=== PATIENT | female | born 1995 | race Caucasian/White ===

== ENCOUNTER 2024-08-12 06:20 | Inpatient (IN) ==
[2024-08-12] MEDS ORDERED: CALCIUM CARBONATE 500 MG CHEWABLE TAB PO PRN (06:44)
[2024-08-12] MEDS ORDERED: ACETAMINOPHEN 325 MG TAB PO PRN (06:44)
[2024-08-12] MEDS ORDERED: ALBUTEROL HFA 8 GM INHALER INH PRN (06:47)
--- NOTE | 2024-08-12 07:15 | History & Physical Report ---
Date of Service August 12, 2024 Assessment & Plan (1) Gestational diabetes: (2) Supervision of normal first : Plan Manuel is a 29 y/o female currently at 39 5/7 WGA with an BROOKE 08/14/24 as determined by LMP who is here for . Her was complicated by COVID- 19 in Dec 2023 and taking daily aspirin daily, diet-controlled GDM. - Consult anesthesiology for epidural per pt request - Pitocin and amniotomy as needed for labor augmentation - NPO until delivery Admission and Anticipated Discharge Date Admission Date: August 12, 2024 History of Present Illness Chief Complaint: Labor Primary Care Provider: NO PCP Manuel is a 29 y/o female currently at 39 5/7 WGA with an BROOKE 08/14/24 as determined by LMP who is here for secondary to regualr contractions at home . Her was complicated by COVID-19 in Dec 2023 and taking daily aspirin daily, diet-controlled GDM. regular contractions; regular movement; no fluid loss; no bloody show Had regular appointments with OB. Blood Type O Positive 01/11/24 Antibody Screen NEGATIVE 01/11/24 Hgb 11.0 g/dl (12.0-16.0) L 05/24/24 Hct 33.5 % (37.0-47.0) L 05/24/24 MCV 90.1 fL (80.0-100.0) 01/11/24 Plt Count 280 K/uL (130-400) 01/11/24 Rubella IgG Antibody Equivocal (Immune) L 01/11/24 Treponema pallidum Ab Negative (Negative) 05/24/24 Hep Bs Antigen Negative (Negative) 01/11/24 Hepatitis C Antibody Negative (Negative) 01/11/24 HIV 1&2 Ab/P24 Ag 4thGn Negative (Negative) 01/11/24 Glucose 1 Hr 50 gm 138 mg/dl (70-130) H 05/24/24 OB Optional Labs: Chlamydia trachomatis RNA Not Detected (NotDetected) 01/11/24 Neisseria gonorrhoeae RNA Not Detected (NotDetected) 01/11/24 H.0(today) Hct: 35.3 (today) WBC: 10.26 (today) Plt: 210 (today) GBS: neg Allergies Allergy/AdvReac Type Severity Reaction Status Date / Time No Known Drug Allergies Allergy Verified 08/09/24 14:29 Home Medications Medication Instructions Recorded Confirmed Type albuterol sulfate 90 mcg/actuation 1 inh inhalation QID PRN shortness 11/23/21 08/12/24 Rx aerosol inhaler of breath or wheezing #6.7 grams PNV no.[id number] 1 tab PO 1XD 01/10/24 08/09/24 History [ Gummies] aspirin [Baby Aspirin] 81 mg PO DAILY 02/01/24 08/12/24 History breast pump #1 ea 07/05/24 08/09/24 Rx Patient History Medical History History of chicken pox Environmental allergies Asthma Surgical History S/P wisdom tooth extraction Family History Father Lymphoma Cancer of kidney Family/Other Breast cancer Denies family history of Ovarian cancer Prostate cancer Lung cancer Colorectal cancer Social History Smoking Status: Never smoker Second Hand Exposure: No; Do You Dip or Chew Tobacco: No; Tobacco Cessation Education Requested by Patient: No Hx Alcohol Use: No Hx Substance Use: No Preferred Language: Turkmen Communication Ability: Effective Visual Impairment: No Limitations Hearing Ability: Normal Supervisor Electronics Inspection Required: No Beliefs That Will Affect Care: None marital status: marital status details: Earnest Beck (27) [phone] Current Living Situation: Spouse Current Living Situation Comment: Pt lives with her - Earnest current occupational status: employed current occupation: [employer]pro[employer] Other Information That Helps Us Care for You: No Feels Safe at Home: Yes Safety Concerns: Feels Safe At This Time Childhood Exposure to Second-Hand Smoke: No caffeine: Yes Dental Care, Regularly: Yes Physical Activity Frequency: 3-4 Times per Week Seatbelt Use: always Sunscreen Use: Yes Assistive Devices: None Review of Systems Denies fever, chills, sweats Denies shortness of breath, difficulty breathing, chest pain, palpitations, chest pressure. Denies breast pain. Denies dysuria. Denies headache or changes in vision. Physical Exam Physical Exam: General: Alert, oriented. No acute distress. Cardiac: Regular rate and rhythm, no murmurs/rubs/gallops. Respiratory: Clear to auscultation bilaterally a/p, no wheezes/rales/rhonchi. No increased work of breathing. Symmetrical chest rise. No respiratory distress. Abdomen: Gravid Pelvic: Dilation 3cm; Effacement 100; Station -[address] Brasher Lower Extremities: No lower extremity edema or swelling. No deep calf pain. Svetlana's negative bilaterally Results & Data Vital Signs (Past 12 Hours) Vital Signs Temp Pulse Resp BP 08/12/24 06:36 62 109/66 08/12/24 06:35 18 08/12/24 06:35 36.9 C 18 Code Status & VTE Plan VTE Prophylaxis Plan VTE Prophylaxis will be ordered: No Monitoring External Monitor External FHT and external uterine monitors used; Category 1 tracing; moderate FHT variability. Supervising Physician Co-Signing Physician Notes Resident Physician Supervision Note: I interviewed and examined the patient. Discussed with Dr. Armendariz and agree with findings and plan as documented in the note. Any exceptions or clarifications are listed here: 29 yo G1 at 39 5/7 wga presenting w/ rom, admitted by prior call provider. SVE just now unchanged, cat 1 tracing, ctx q3-6. Discussed pitocin, pt agreeable. EFW 7 Documented By: Diamond Ch MD Resident Activity Tracking Resident Involvement: Resident Care Provided Care Provided: Adult Hospital Medicine
[2024-08-12 07:23] LABS: Hematocrit (blood only) 35.3 % (37.0-47.0); Mean Corpuscular Hemoglobin 31.9 pg (25.0-34.0); Mean Corpuscular Volume 93.9 fL (80.0-100.0); Mean Platelet Volume 10.3 fL (9.4-12.4); Platelet Count 210 K/uL (130-400); RDW Coefficient of Variation 13.2 % (11.5-14.5); RDW Standard Deviation 45.3 fL (36.4-46.3); Red Blood Count 3.76 M/uL (4.20-5.40); White Blood Count 10.26 K/ul (4.8-10.8)
[2024-08-12] MEDS: LACTATED RINGER'S 1,000 ML IV PRN (11:07)
[2024-08-12] MEDS: OXYTOCIN 30 UNITS/NSS 30 UNITS/500 ML BAG IV PRN ×2 (11:08→12:53)
[2024-08-12] MEDS ORDERED: BUPIVACAINE 0.25% PF 30 ML VIAL EPI STA (11:25)
[2024-08-12] MEDS ORDERED: LIDOCAINE 2% MPF LOCAL 5 ML VIAL EPI PRN (11:25)
[2024-08-12] MEDS ORDERED: ROPIVACAINE 0.5% PF 5 MG/ML 20 ML VIAL EPI PRN (11:25)
[2024-08-12] MEDS ORDERED: NALOXONE HCL 1 MG in SODIUM CHLORIDE 0.9% 1,000 ML IV PRN (11:25)
[2024-08-12] MEDS ORDERED: NALBUPHINE HCL INJ 10 MG/ML AMP IV PRN (11:25)
[2024-08-12] MEDS ORDERED: fentaNYL citrate PF 100 MCG/2 ML VIAL EPI PRN (11:25)
[2024-08-12] MEDS ORDERED: diphenhydrAMINE 50 MG/ML VIAL IV PRN (11:25)
[2024-08-12] MEDS ORDERED: BUPIVACAINE 0.25% PF 30 ML VIAL EPI PRN (11:25)
[2024-08-12] MEDS ORDERED: fentANYL 2 MCG/ML BUPIVacaine 0.125%-NSS 100ML BAG EPI PRN (11:25)
[2024-08-12] MEDS ORDERED: ONDANSETRON INJ 2 MG/ML 2 ML VIAL IV PRN (11:25)
[2024-08-12] MEDS ORDERED: NALOXONE HCL 0.4 MG/1 ML VIAL/CARP IV PRN (11:25)
[2024-08-12] MEDS ORDERED: ePHEDrine sulfate 50 MG/ML AMP IV PRN (11:25)
[2024-08-12] MEDS ORDERED: LIDOCAINE 2%/EPINEPHRINE 1:200,000 20 ML PF EPI STA (11:25)
[2024-08-12] MEDS ORDERED: SODIUM CHLORIDE 0.9% PF INJ 10 ML VIAL EPI STA (11:25)
[2024-08-12] MEDS ORDERED: fentaNYL citrate PF 100 MCG/2 ML VIAL EPI STA (11:25)
[2024-08-12] MEDS ORDERED: SODIUM CHLORIDE 0.9% PF INJ 10 ML VIAL EPI PRN (11:25)
--- NOTE | 2024-08-12 11:25 | Anesthesiology Consultation ---
Date of Service August 12, 2024 Assessment & Plan ASA ASA2 Proposed Anesthesia Anesthesia Type: Labor Epidural Risk / Benefits Reviewed With: PT / POA / Parent / Guardian, Accepts Plan and Informed Consent Obtained History Height/Weight Height: 5 ft 2.99 in Weight: 74.843 kg Allergies Allergy/AdvReac Type Severity Reaction Status Date / Time No Known Drug Allergies Allergy Verified 08/09/24 14:29 Medications Home Medications Medication Instructions Recorded Confirmed Last Taken albuterol sulfate 90 mcg/actuation 1 inh inhalation QID PRN shortness 11/23/21 08/12/24 Unknown aerosol inhaler of breath or wheezing #6.7 grams PNV no.[id number] 1 tab PO 1XD 01/10/24 08/09/24 08/11/24 10:00 [ Gummies] aspirin [Baby Aspirin] 81 mg PO DAILY 02/01/24 08/12/24 08/11/24 10:00 breast pump #1 ea 07/05/24 08/09/24 Unknown Active Medications Generic Name Dose Route Start Last Admin Trade Name Freq PRN Reason Stop Dose Admin Lactated Ringer's 1,000 mls @ 125 mls/hr 08/12/24 06:44 08/12/24 11:07 Lr IV 08/14/24 06:43 999 mls/hr .Q8H PRN Administration L&D Protocol Protocol Oxytocin 30 units in 500 mls @ 2 mls/hr 08/12/24 10:13 08/12/24 11:08 Pitocin 30 Units/Nss IV 08/14/24 10:12 0.12 units/hr .Q24H PRN 2 mls/hr Labor Induction/Augmentation Administration Protocol 0.12 UNITS/HR Past Medical History Medical History History of chicken pox Environmental allergies Asthma Exercise / Class Metabolic Activity II 4-5 Yardwork/Stairs/Walk up hill Past Family History Family History Father Lymphoma Cancer of kidney Family/Other Breast cancer cousin Denies family history of Ovarian cancer Prostate cancer Lung cancer Colorectal cancer Past Surgical History Surgical History S/P wisdom tooth extraction Past Anesthesia History No Hx of Anesthesia Complications and No Family Hx of Anesthesia Complications History of PONV No Hx of PONV and No Hx of Motion Sickness Social History Smoking Status: Never smoker Do You Dip or Chew Tobacco: No Hx Alcohol Use: No Hx Substance Use: No substance use type: does not use Review of Systems denies fever/cough/ colds/ chest pain/ SOB/ BILLIE denies BILLIE Physical Exam Vital Signs Last Vital Signs Temp 36.7 C 08/12/24 08:53 Pulse 64 08/12/24 11:22 Resp 18 08/12/24 08:53 BP 120/71 08/12/24 09:55 Pulse Ox 98 08/12/24 11:22 O2 Del Method Room Air 08/12/24 07:19 ENMT Mouth: no TMJ abnormality and no dentition abnormality Thyromental Distance: > or= 3.5 Finger Breadths Mallampati Class: II Neck neck extension not limited Respiratory normal respiratory effort; no respiratory distress Auscultation: lungs clear to auscultation bilaterally Cardiovascular Rate/Rhythm: regular rate and regular rhythm Neurologic moves all extremities Psychiatric Orientation: alert and oriented x 3 Testing Laboratory Results 08/12/24 06:55 08/12/24 08/12/24 08/12/24 10:57 08:55 07:05 POC Glucose 92 86 94
[2024-08-12] MEDS: LIDOCAINE 1% LOCAL 20 ML VIAL INFIL PRN (12:15)
--- NOTE | 2024-08-12 12:40 | Delivery Summary ---
Vaginal Delivery Summary Date of Service August 12, 2024 Vaginal Delivery Summary (left vaginal/labial tear) PREOPERATIVE DIAGNOSIS: 1. Single intrauterine at 39 5/7 wga 2. SROM 3. A1GDM POSTOPERATIVE DIAGNOSIS: 1. Single intrauterine at 39 5/7 wga 2. SROM 3. A1GDM 4. Delivered PROCEDURE: 1. Normal spontaneous vaginal delivery. SURGEON: Diamond Ch MD ANESTHESIA: Local QUANTITATIVE BLOOD LOSS: 115 mL FLUIDS: Continuous LR. URINE OUTPUT: None. COMPLICATIONS: None. CONDITION: Stable. INDICATIONS: 29 yo G1 at 39 5/7 wga presented with SROM and 3cm. She was unchanged after a few hours and pitocin started. Shortly after she progressed to complete and desired to push FINDINGS: A viable female infant, weight pending with Apgars of 8 and 9 at 1 and 5 minutes respectively. SPECIMEN: Cord blood OPERATIVE REPORT: The patient progressed to 10 cm, 100% effaced and +2 station, pushed over intact perineum with anesthesia to deliver a viable female , weight and Apgars as above. Head of delivered in CLAUDINE position. No nuchal cord was present. Body and shoulders were delivered without difficulty. was delivered to maternal abdomen and nursing staff. Delayed cord clamping was performed for 60 seconds. Cord was clamped and cut. Cord blood was obtained. Placenta delivered spontaneously intact with 3-vessel cord. IV oxytocin and fundal massage were given for excellent hemostasis. Vagina, cervix, perineum, and placenta were inspected. A left vaginal laceration extending to left labia was noted. Local anesthesia was administered and laceration repaired with 3-0 vicryl, there was excellent hemostasis. Sponge and needle counts correct x2. No sponges were left behind. Mother and stable in immediate period. [facility] [place] Vaginal Delivery Charge Vaginal Delivery Codes: 60090 global code for the antepartum, delivery, and post- Delivery Type Details: (left vaginal/labial tear)
[2024-08-12] MEDS ORDERED: OXYTOCIN 30 UNITS/NSS 30 UNITS/500 ML BAG IV PRN (13:13)
[2024-08-12] MEDS ORDERED: bisacodyL 10 MG SUPP PR PRN (13:13)
[2024-08-12] MEDS ORDERED: HYDROCORTISONE ACETATE 25 MG SUPP PR PRN (13:13)
[2024-08-12] MEDS: fentaNYL citrate PF 100 MCG/2 ML VIAL ONE (13:14)
[2024-08-12] MEDS: BUPIVACAINE 0.25% PF 30 ML VIAL ONE (13:14)
[2024-08-12] MEDS: ePHEDrine sulfate 50 MG/ML AMP ONE (13:14)
[2024-08-12] MEDS: fentANYL 2 MCG/ML BUPIVacaine 0.125%-NSS 100ML BAG ONE (13:14)
[2024-08-12] MEDS: LIDOCAINE 2%/EPINEPHRINE 1:200,000 20 ML PF ONE (13:15)
[2024-08-12] MEDS: SODIUM CHLORIDE 0.9% PF INJ 10 ML VIAL ONE (13:15)
[2024-08-12] MEDS: DIPHTHER/TETAN/PERTUS Vaccine (Tdap, Adol/Adult) 0.5mL IM ONE (13:22)
[2024-08-12] MEDS: IBUPROFEN 600 MG TAB PO PRN (13:24)
[2024-08-12] MEDS: BENZOCAINE 20% SPRY 85 APPLN/85 GM CAN EXT PRN (17:28)
[2024-08-12] MEDS: DOCUSATE SODIUM 100 MG CAP PO SCH (20:29)
[2024-08-12] MEDS ORDERED: MEASLES, MUMPS & RUBELLA VIRUS VACCINE (MMR) 0.5ML VIAL ONE (23:57)
[2024-08-13] MEDS: MEASLES, MUMPS & RUBELLA VIRUS VACCINE (MMR) 0.5ML VIAL SQ ONE (00:01)
--- NOTE | 2024-08-13 05:54 | Obstetrical Progress Note ---
Date of Service August 13, 2024 Assessment & Plan (1) Encounter for care and examination after delivery: (2) Gestational diabetes: Plan Pt is 29 yo post- day 1 s/p at 39w5d. complicated by diet controlled GDM. Pt is recovering well. Will plan to stay overnight for continued nursing support. - Encourage ambulation - Encourage breast feeding - Pain control with tylenol and ibuprofen - Anticipate DC 08/14 Admission and Anticipated Discharge Date Admission Date: August 12, 2024 Supervising Physician Co-Signing Physician Notes Resident Physician Supervision Note: I interviewed and examined the patient. Discussed with Dr. Armendariz and agree with findings and plan as documented in the note. Any exceptions or clarifications are listed here: eating, voiding, ambulating, bleeding decreasing, breast feeding. abd soft ff2 down, appropriately tender. ext nt calves. ppd#1 s/p , routine care. Documented By: Yvrose Gutierrez MD, FACOG Subjective Pt is 29 yo post- day 1 s/p at 39w5d Ambulation:In room Voiding:voiding normally Passing gas: yes BM: no Diet tolerance:regular diet Lochia:bloody, no clots Feeding type: breast Current pain level: 3-5 /10 improved with ibuprofen Resting comfortably this morning in NAD. Denies MELO, CP, SOB, N/V/D, LE pain/swelling. Review of Systems Review of Systems: As per HPI Physical Exam Constitutional: WD/WN, vitals as above Respiratory: normal respiratory effort, lungs clear to auscultation Cardiovascular: RRR, no murmur, no edema Gastrointestinal (Abdomen): normal bowel sounds, soft, nontender, no hepatosplenomegaly Uterine fundus firm and at 1 cm below level of umbilicus Neurologic: PERRL, EOMI, accommodation nl, no face palsy, no dysarthria Moving all 4 extremities on command Psychiatric: A+Ox3, euthymic affect Results & Data Vital Signs (Past 12 Hours) Vital Signs Temp Pulse Resp BP Pulse Ox O2 Del Method 08/13/24 03:10 36.5 C 69 16 101/65 96 Room Air 08/13/24 00:10 37.0 C 68 16 103/64 98 Room Air 08/12/24 20:30 Room Air 08/12/24 20:30 36.9 C 70 18 100/66 96 Room Air Resident Activity Tracking Resident Involvement: Resident Care Provided Care Provided: Adult Hospital Medicine
[2024-08-13] MEDS: PRENATAL VITAMIN 1 TAB PO SCH (07:35)
[2024-08-13] MEDS: bisacodyL 5 MG TABEC PO SCH (20:26)
[2024-08-14] MEDS: ACETAMINOPHEN 325 MG TAB PO PRN (05:18)
--- NOTE | 2024-08-14 06:07 | Obstetrical Progress Note ---
Date of Service August 14, 2024 Assessment & Plan (1) Encounter for care and examination after delivery: (2) Gestational diabetes: Plan Pt is 29 yo post- day 2 s/p at 39w5d. complicated by diet controlled GDM. Pt is recovering well. Ready to DC to home today. - Encourage ambulation - Encourage breast feeding - Pain control with tylenol and ibuprofen - Anticipate DC today Admission and Anticipated Discharge Date Admission Date: August 12, 2024 Supervising Physician Co-Signing Physician Notes Resident Physician Supervision Note: I was present with Dr. Armendariz during the history and exam. I discussed the case with the resident and agree with the findings and plan as documented in the note. Any exceptions or clarifications are listed here: [None] Documented By: David Dickson MD, FACOG Subjective Pt is 29 yo post- day 2 s/p at 39w5d Ambulation:In room Voiding:voiding normally Passing gas: yes BM: yes Diet tolerance:regular diet Lochia:bloody, no clots Feeding type: breast Current pain level: 1-3 /10 improved with ibuprofen Resting comfortably this morning in NAD. Denies MELO, CP, SOB, N/V/D, LE pain/swelling. Review of Systems Review of Systems: As per HPI Physical Exam Constitutional: WD/WN, vitals as above Respiratory: normal respiratory effort, lungs clear to auscultation Cardiovascular: RRR, no murmur, no edema Gastrointestinal (Abdomen): normal bowel sounds, soft, nontender, no hepatosplenomegaly Uterine fundus is firm an 2 cm below level of umbilicus Neurologic: PERRL, EOMI, accommodation nl, no face palsy, no dysarthria Psychiatric: A+Ox3, euthymic affect Results & Data Vital Signs (Past 12 Hours) Vital Signs Temp Pulse Resp BP Pulse Ox O2 Del Method 08/13/24 23:19 37.0 C 67 16 115/76 95 Room Air 08/13/24 20:25 36.9 C 68 18 106/69 96 Room Air Resident Activity Tracking Resident Involvement: Resident Care Provided Care Provided: Adult Hospital Medicine
[2024-08-14 09:39] VITALS: BP 108/73; PULSE 61; RESP 20; TEMP 98.4; O2SAT 97
== END 2024-08-14 11:45 | disposition home or self-care (01) | DRG 807 ==
LOC: OPB 06:20 → 4S1 06:24 → 4E2 14:50